=== PATIENT | female | born 1940 | race Caucasian/White ===

== ENCOUNTER 2018-11-25 10:34 | Outpatient (CLI) | payer MEDICARE, OTHER ==
[~2018-11-25 10:34] MED LIST: ASPI-496 PO; ATOR20TA PO; INSU100V8 SQ; OLME20TA17 PO; SPIR25TA PO
== END 2018-11-25 23:59 | disposition home or self-care (01) ==
LOC: CFH 10:34
PROVIDERS: ATTEND Internal Medicine Cardiovascular Disease
DX: I08.8 Other rheumatic multiple valve diseases (principal)
CPT/HCPCS: 93306

== ENCOUNTER 2019-12-02 16:05 | Inpatient (IN) | payer MEDICARE, OTHER ==
[~2019-12-02] VITALS: Ht 165.1 cm; Wt 98.8 kg
[~2019-12-02 16:05] MED LIST changes: +APIX2.5T PO; +ASCO500T8 PO; +CARV3.1212 PO; +DIGO125T85 PO; +IRON1TAB60 PO; +POTA99TA24 PO; +TIOT4MIS3 INH
[2019-12-02 17:07] LABS: MEAN CORPUSCULAR HEMOGLOBIN 29.9 pg (27.0-34.8); MEAN CORPUSCULAR HGB CONC 32.9 g/dL (32.4-35.8); MEAN CORPUSCULAR VOLUME 91.1 fL (80-100); MEAN PLATELET VOLUME 7.8 fL (7.4-10.4); PLATELET COUNT 663 x10^3/uL (130-400); RED BLOOD COUNT 3.88 x10^6/uL (3.82-5.3); RED CELL DISTRIBUTION WIDTH 15.6 % (9.6-15.2)
[2019-12-02 17:13] LABS: INTERNATIONAL NORMALIZED RATIO 1.13 (0.93-1.1)
[2019-12-02 17:14] LABS: ALANINE AMINOTRANSFERASE 18 U/L (12-78); ALBUMIN 1.3 g/dL (3.4-5.0); ANION GAP 14 mmol/L (5-15); CALCIUM 8.6 mg/dL (8.5-10.1); CHLORIDE 93 mmol/L (98-107); CREATININE 5.03 mg/dL (0.55-1.02)
--- NOTE | 2019-12-02 17:25 | NUR ---
BREAK RN: DRESSING REMOVED
[2019-12-02 17:30] LABS: ALKALINE PHOSPHATASE 126 U/L (45-117); BILIRUBIN,TOTAL 0.5 mg/dL (0.2-1.0); TOTAL PROTEIN 6.8 g/dL (6.4-8.2)
[2019-12-02] MEDS ORDERED: SODIUM CHLORIDE 0.9% 1,000 ML IV ONE (18:00)
[2019-12-02] MEDS ORDERED: VANCOMYCIN PER PHARMACY MC ONE (18:00)
[2019-12-02] MEDS ORDERED: ALBUMIN HUMAN 25% 100 ML IV ONE ×2 (18:00→20:00)
[2019-12-02] MEDS ORDERED: VANCOMYCIN 1,800 MG in SODIUM CHLORIDE 0.9% 250 ML IV ONE (18:00)
[2019-12-02] MEDS ORDERED: CEFTRIAXONE PMX 1GM/50ML 50 ML IVPB ONE (18:00)
[2019-12-02] MEDS ORDERED: SODIUM CHLORIDE 0.9% 1,000ML IVBOLUS ONE (18:00)
[2019-12-02] MEDS ORDERED: CEFTRIAXONE 1,000 MG ONE (18:00)
[2019-12-02 18:01] LABS: MD YES
[2019-12-02 18:02] LABS: BAND#(MANUAL) 7.08 x10^3/uL; BANDS%(MANUAL) 22 % (0-7); LYMPH#(MANUAL) 1.29 x10^3/uL (1-3.4); LYMPHS% (MANUAL) 4 % (22-44); MONOS#(MANUAL) 0.32 x10^3/uL (0.3-2.7); MONOS% (MANUAL) 1 % (2-9); SEG#(MANUAL) 23.51 x10^3/uL (1.8-6.8); SEGS% (MANUAL) 73 % (42-75)
[2019-12-02 18:03] LABS: <PLATELET ESTIMATE> INCREASED; ANISOCYTOSIS 1+; POLYCHROMASIA 1+; TOXIC GRAN 1+
[2019-12-02 18:05] LABS: LARGE PLATELETS 1+
[2019-12-02 18:50] LABS: MICROSCOPIC INDICATED
[2019-12-02] MEDS ORDERED: SODIUM CHLORIDE 0.9%, 250ML IVBOLUS ONE (19:30)
--- NOTE | 2019-12-02 20:11 | NUR ---
TASK RN: PUMP BEEPING, PUMP TROUBLESHOT AND REINITIATED VANCOMYCIN PER ORDER
--- NOTE | 2019-12-02 20:21 | NUR ---
REPORT GIVEN TO TOBIAS GONZALEZ
[2019-12-02 21:12] VITALS: BP 94/68
[2019-12-02] MEDS: APIXABAN 2.5 MG TABLET PO SCH (22:00)
[2019-12-02] MEDS ORDERED: VANCOMYCIN PER PHARMACY MC PRN (22:00)
[2019-12-02] MEDS ORDERED: NYSTATIN TOPICAL POWDER 15GM TP PRN (22:00)
[2019-12-02] MEDS ORDERED: ACETAMINOPHEN 325 MG TABLET PO PRN (22:00)
[2019-12-02] MEDS ORDERED: ONDANSETRON 2MG/ML, 2ML IVPush PRN (22:00)
[2019-12-02] MEDS ORDERED: TRAZODONE 50MG TABLET PO PRN (22:00)
[2019-12-02] MEDS ORDERED: PHARMACOKINETIC CONSULTATION MC ONE (22:30)
[2019-12-02] MEDS ORDERED: PHARMACOKINETIC MONITORING MC PRN (22:30)
[2019-12-02] MEDS: FUROSEMIDE 40 MG/4 ML IV ONE ×2 (23:00→23:52)
[2019-12-03] VITALS (7 sets, daily range): BP systolic 84–97; BP diastolic 54–64
[2019-12-03] MEDS ORDERED: CEFTRIAXONE PMX 1GM/50ML 50 ML IV SCH (06:00)
[2019-12-03 06:18] LABS: MEAN CORPUSCULAR HEMOGLOBIN 29.7 pg (27.0-34.8); MEAN CORPUSCULAR HGB CONC 32.9 g/dL (32.4-35.8); MEAN CORPUSCULAR VOLUME 90.3 fL (80-100); MEAN PLATELET VOLUME 7.6 fL (7.4-10.4); PLATELET COUNT 603 x10^3/uL (130-400); RED BLOOD COUNT 3.23 x10^6/uL (3.82-5.3); RED CELL DISTRIBUTION WIDTH 15.6 % (9.6-15.2)
[2019-12-03 06:35] LABS: ANION GAP 14 mmol/L (5-15); CALCIUM 8.8 mg/dL (8.5-10.1); CHLORIDE 96 mmol/L (98-107)
[2019-12-03 06:36] LABS: CREATININE 4.95 mg/dL (0.55-1.02); MD YES
[2019-12-03 06:37] LABS: BAND#(MANUAL) 0.81 x10^3/uL; BANDS%(MANUAL) 3 % (0-7); LYMPH#(MANUAL) 1.08 x10^3/uL (1-3.4); LYMPHS% (MANUAL) 4 % (22-44); METAMYELOCYTES# (MANUAL) 0.27 x10^3/uL (0-0); METAMYELOCYTES% (MANUAL) 1 % (0-1); MONOS#(MANUAL) 0.81 x10^3/uL (0.3-2.7); MONOS% (MANUAL) 3 % (2-9); SEG#(MANUAL) 24.12 x10^3/uL (1.8-6.8); SEGS% (MANUAL) 89 % (42-75)
[2019-12-03 06:38] LABS: <PLATELET ESTIMATE> INCREASED; ANISOCYTOSIS 1+; POLYCHROMASIA 1+
[2019-12-03 06:39] LABS: <PLT MORPHOLOGY> NORMAL PLT MORPH
[2019-12-03 06:42] LABS: HOWELL-JOLLY BODIES 1+
[2019-12-03] MEDS ORDERED: AZITHROMYCIN 500 MG in SODIUM CHLORIDE 0.9% 250 ML IV SCH (07:30)
[2019-12-03] MEDS: ALBUTEROL/IPRATROPIUM 2.5MG/0.5MG, 3 ML NPPB SCH ×2 (07:34→20:21)
[2019-12-03] MEDS: MAALOX/HYOSCYAMINE/LIDOCAINE 45 ML BTL PO ONE ×2 (08:00→08:31)
[2019-12-03] MEDS: APIXABAN 2.5 MG TABLET PO SCH ×2 (08:31→20:17)
[2019-12-03] MEDS: MULTIVITAMINS WITH IRON TABLET PO SCH (08:31)
[2019-12-03] MEDS: SENNA/DOCUSATE TABLET PO SCH (08:31)
[2019-12-03] MEDS: CEFTAROLINE 200 MG in SODIUM CHLORIDE 0.9% 100 ML IV SCH ×2 (09:47→20:16)
[2019-12-03] MEDS ORDERED: FUROSEMIDE 40 MG/4 ML IV ONE (13:30)
[2019-12-03] MEDS ORDERED: ALBUMIN HUMAN 25% 100 ML IV ONE ×2 (13:30)
[2019-12-03] MEDS ORDERED: FUROSEMIDE 20 MG/2 ML ONE (16:56)
[2019-12-03] MEDS: NYSTATIN 500,000 UNITS/5 ML UDC PO SCH ×2 (16:58→20:17)
[2019-12-03] MEDS: INSULIN LISPRO 100 UNITS/ML, PEN SQ-INSULIN SCH ×2 (16:59→20:17)
[2019-12-03] MEDS ORDERED: FUROSEMIDE 20 MG/2 ML IV ONE ×2 (17:00→23:00)
[2019-12-03] MEDS: MIDODRINE 5 MG TABLET PO SCH (20:17)
[2019-12-04 01:05] VITALS: BP 93/60
[2019-12-04] MEDS: NYSTATIN 500,000 UNITS/5 ML UDC PO SCH ×2 (05:30→11:12)
[2019-12-04 05:38] LABS: MEAN CORPUSCULAR HEMOGLOBIN 29.7 pg (27.0-34.8); MEAN CORPUSCULAR HGB CONC 32.3 g/dL (32.4-35.8); MEAN CORPUSCULAR VOLUME 91.9 fL (80-100); MEAN PLATELET VOLUME 7.4 fL (7.4-10.4); PLATELET COUNT 614 x10^3/uL (130-400); RED BLOOD COUNT 3.12 x10^6/uL (3.82-5.3); RED CELL DISTRIBUTION WIDTH 15.1 % (9.6-15.2)
[2019-12-04 05:50] LABS: ANION GAP 16 mmol/L (5-15); CALCIUM 8.7 mg/dL (8.5-10.1); CHLORIDE 95 mmol/L (98-107)
[2019-12-04 05:51] LABS: CREATININE 5.26 mg/dL (0.55-1.02)
[2019-12-04 06:09] LABS: MD YES
[2019-12-04 06:10] LABS: BAND#(MANUAL) 1.46 x10^3/uL; BANDS%(MANUAL) 6 % (0-7); EOS#(MANUAL) 0.24 x10^3/uL (0.0-0.4); EOS% (MANUAL) 1 % (1-7); LYMPH#(MANUAL) 0.49 x10^3/uL (1-3.4); LYMPHS% (MANUAL) 2 % (22-44); MONOS#(MANUAL) 0.49 x10^3/uL (0.3-2.7); MONOS% (MANUAL) 2 % (2-9); SEG#(MANUAL) 21.63 x10^3/uL (1.8-6.8); SEGS% (MANUAL) 89 % (42-75)
[2019-12-04 06:11] LABS: <PLATELET ESTIMATE> INCREASED; <PLT MORPHOLOGY> NORMAL PLT MORPH; ANISOCYTOSIS 1+; HYPOCHROMIA 1+; POLYCHROMASIA 1+
[2019-12-04 06:59] VITALS: BP 89/59
[2019-12-04] MEDS: INSULIN LISPRO 100 UNITS/ML, PEN SQ-INSULIN SCH ×2 (07:00→11:00)
[2019-12-04] MEDS: CEFTAROLINE 200 MG in SODIUM CHLORIDE 0.9% 100 ML IV SCH (08:21)
[2019-12-04] MEDS: MULTIVITAMINS WITH IRON TABLET PO SCH ×2 (08:21→09:00)
[2019-12-04] MEDS: APIXABAN 2.5 MG TABLET PO SCH ×2 (08:21→09:00)
[2019-12-04] MEDS: SENNA/DOCUSATE TABLET PO SCH ×2 (08:21→09:00)
[2019-12-04] MEDS: MIDODRINE 5 MG TABLET PO SCH ×2 (08:21→09:00)
[2019-12-04] MEDS: ALBUTEROL/IPRATROPIUM 2.5MG/0.5MG, 3 ML NPPB SCH (10:00)
[2019-12-04] MEDS ORDERED: NYST1000 PO (12:01)
[2019-12-04] MEDS ORDERED: DOXY100T PO (12:01)
[2019-12-04] MEDS ORDERED: NYST15PO2 TP (12:01)
== END 2019-12-04 14:34 | disposition hospice, home (50) | DRG 871 ==
LOC: ED 16:31 → EDIP 19:33 → 4WST 21:00
PROVIDERS: ADMIT Family Medicine; ATTEND Internal Medicine
DX: A41.9 Sepsis, unspecified organism (principal); E43 Unspecified severe protein-calorie malnutrition; I50.43 Acute on chronic combined systolic (congestive) and diastolic (congestive) heart failure; J18.9 Pneumonia, unspecified organism; E87.1 Hypo-osmolality and hyponatremia; I13.0 Hypertensive heart and chronic kidney disease with heart failure and stage 1 through stage 4 chronic kidney disease, or unspecified chronic kidney disease; J96.10 Chronic respiratory failure, unspecified whether with hypoxia or hypercapnia; D68.69 Other thrombophilia; E87.2 Acidosis; N17.9 Acute kidney failure, unspecified; N18.4 Chronic kidney disease, stage 4 (severe); L03.116 Cellulitis of left lower limb; L03.115 Cellulitis of right lower limb; N39.0 Urinary tract infection, site not specified; R65.20 Severe sepsis without septic shock; E11.22 Type 2 diabetes mellitus with diabetic chronic kidney disease; D64.9 Anemia, unspecified; J44.9 Chronic obstructive pulmonary disease, unspecified; R13.10 Dysphagia, unspecified; D69.6 Thrombocytopenia, unspecified; B37.9 Candidiasis, unspecified; I25.5 Ischemic cardiomyopathy; D63.1 Anemia in chronic kidney disease; D63.8 Anemia in other chronic diseases classified elsewhere; Z51.5 Encounter for palliative care; I48.91 Unspecified atrial fibrillation; Z79.01 Long term (current) use of anticoagulants; Z85.3 Personal history of malignant neoplasm of breast; Z95.0 Presence of cardiac pacemaker; Z88.0 Allergy status to penicillin; Z88.8 Allergy status to other drugs, medicaments and biological substances
CPT/HCPCS: 36415; 71045; 80048; 80053; 81001; 82040; 82306; 82533; 82550; 82962; 83036; 83605; 83735; 83880; 83970; 84100; 84145; 84443; 85025; 85610; 85730; 87040; 87086; 93005; 93922; 94640; 96365; 99291; G0378; J0696; J0712; J1940; J2405; J3370; P9047; J7030; J7050